=== PATIENT | female | born 1960 | race Caucasian/White ===

== ENCOUNTER 2021-08-31 22:06 | Emergency (ER) | payer OTHER ==
[2021-08-31] MEDS ORDERED: KETOROLAC 15 MG/ML 1 ML VIAL IM STA (22:26)
--- NOTE | 2021-08-31 22:57 | XR ---
EXAMINATION TYPE: XR forearm RT DATE OF EXAM: 08/31/2021 COMPARISON: NONE HISTORY: Elbow pain TECHNIQUE: 2 view FINDINGS: There is a fracture of the capitellum. Radius and ulna appear intact. The carpal bones appe ar intact. Capitellum fragment is rotated anteriorly. IMPRESSION: There is intra-articular fracture of the distal humerus involving the capitellum with rot ation of the fragment.
--- NOTE | 2021-08-31 22:58 | XR ---
EXAMINATION TYPE: XR elbow complete RT DATE OF EXAM: 08/31/2021 COMPARISON: NONE HISTORY: Pain TECHNIQUE: 3 views FINDINGS: There is a fracture of the capitellum of the distal humerus. The fragment measures 10 x 17 mm and is rotated anteriorly and dislocated from the radial head. There is no significant elbow joint effusion. The proximal ulna is intact. Proximal radius is intact. IMPRESSION: Intra-articular fracture of the capitellum with significant rotation of the fragment and anterior displacement and dislocation from the radial head.
[2021-08-31] MEDS ORDERED: ACET/COD 300 MG/30 MG STARTER PACK 6 TAB BTL PO STA (23:21)
--- NOTE | 2021-08-31 23:22 | ED ---
Upper Extremity HPI - General Chief Complaint: Extremity Injury, Upper Stated Complaint: Fall, Arm injury Time Seen by Provider: 08/31/21 22:20 Source: patient Mode of arrival: ambulatory Limitations: no limitations - History of Present Illness Initial Comments: 60-year-old female patient presents the emergency department today for evaluation of right arm pain after a fall. Patient states just prior to arrival she tripped over a dog. States she landed on the right arm. States she is having pain from mid upper arm down to the right elbow. She denies numbness or tingling in the hand. Denies any shoulder pain. Denies hitting her head or losing consciousness. Denies any neck or back pain. Denies any other injuries. She is not taking anything for pain. Denies previous injury to the elbow. - Related Data Previous Rx's Medication Instructions Recorded Ibuprofen [Motrin] 600 mg PO Q8HR PRN #30 tab 08/31/21 Allergies Allergy/AdvReac Type Severity Reaction Status Date / Time hydrocodone Allergy Vomiting Verified 08/31/21 22:10 Review of Systems ROS Statement: Those systems with pertinent positive or pertinent negative responses have been documented in the HPI. ROS Other: All systems not noted in ROS Statement are negative. Past Medical History Past Medical History: No Reported History Past Surgical History: No Surgical Hx Reported Smoking Status: Never smoker Past Alcohol Use History: Occasional Past Drug Use History: Marijuana General Exam Limitations: no limitations General appearance: alert, in no apparent distress, other (This is a well- developed, well-nourished adult female patient in no acute distress.) Head exam: Present: atraumatic, normocephalic, normal inspection Eye exam: Present: normal appearance, PERRL, EOMI. Absent: scleral icterus, conjunctival injection, periorbital swelling ENT exam: Present: normal exam, normal oropharynx, mucous membranes moist Neck exam: Present: normal inspection, full ROM, other (Nontender, no step-off, no deformity to firm midline palpation of the posterior cervical spine. Full range of motion without pain or limitation.). Absent: tenderness, meningismus, lymphadenopathy Respiratory exam: Present: normal lung sounds bilaterally. Absent: respiratory distress, wheezes, rales, rhonchi, stridor Cardiovascular Exam: Present: regular rate, normal rhythm, normal heart sounds. Absent: systolic murmur, diastolic murmur, rubs, gallop, clicks Extremities exam: Present: full ROM, normal capillary refill, other (There is tenderness noted to the right elbow. Mild soft tissue swelling. Skin to the right arm is pink, warm, dry. Cap refill less than 3 seconds. Radial pulses 2+.). Absent: tenderness, pedal edema, joint swelling, calf tenderness Neurological exam: Present: alert, oriented X3, CN II-XII intact Psychiatric exam: Present: normal affect, normal mood Skin exam: Present: warm, dry, intact, normal color. Absent: rash Course Vital Signs 08/31/21 08/31/21 22:07 23:34 Temperature 97.5 F L 97.8 F Pulse Rate 76 74 Respiratory 19 18 Rate Blood Pressure 171/91 130/79 O2 Sat by Pulse 98 98 Oximetry Procedures - Orthopedic Splinting/Casting Injury #1 Side: right Upper Extremity Injury Location: long arm, elbow Upper Extremity Immobilizer: sling/shoulder immobilizer, posterior splint, Raoul wrap, synthetic pre-padded splint Medical Decision Making - Medical Decision Making 60-year-old female patient presents the emergency department today for evaluation of right arm pain after a fall. Physical examination did reveal tenderness over the right elbow with soft tissue swelling. Neurovascular status is intact. X-ray did reveal a fracture of the distal humerus with a fragment of the capitellum which is displaced and rotated. We did place a splint over the arm. She does live in [place], will be traveling back tomorrow. She is instructed to follow-up with orthopedics as soon as she arrives. She was given a copy of the x-ray to take with her. She is given pain medication. Return parameters were discussed in detail. She verbalizes understanding and agrees with this plan. Case discussed with my attending Dr. Hammond. - Radiology Data Radiology results: report reviewed, image reviewed 3 views of the right elbow are obtained. Report is reviewed in its entirety. Impression by Dr. Hassan shows intra-articular fracture of the capitellum with significant rotation of the fragment anterior displacement dislocation from the radial head. 2 views of the right forearm are obtained. Report was reviewed in its entirety. Impression by Dr. Hassan shows intra-articular fracture of the distal humerus involving the capitellum with rotation of the fragment. Disposition Clinical Impression: Closed fracture of right distal humerus Disposition: HOME SELF-CARE Condition: Good Instructions (If sedation given, give patient instructions): Elbow Fracture (ED), Splint Care (ED) Additional Instructions: Apply ice to the area 20 minutes at a time at least 4-5 times per day. Take medication as directed. Follow-up with obgyn specialist for further evaluation as soon as possible. Return to the emergency department for new, worsening, or concerning symptoms. Prescriptions: Ibuprofen [Motrin] 600 mg PO Q8HR PRN #30 tab PRN Reason: Pain Is patient prescribed a controlled substance at d/c from ED?: No Referrals: Nonstaff,Physician [Primary Care Provider] - 1-2 days Time of Disposition: 23:21
[2021-08-31 23:35] VITALS: BP 130/79; PULSE 74; RESP 18; TEMP 97.8
== END 2021-08-31 23:35 | disposition home or self-care (01) ==
LOC: EC 22:06
DX: S42.401A Unspecified fracture of lower end of right humerus, initial encounter for closed fracture (principal); F12.90 Cannabis use, unspecified, uncomplicated; Z88.5 Allergy status to narcotic agent; W01.0XXA Fall on same level from slipping, tripping and stumbling without subsequent striking against object, initial encounter
CPT/HCPCS: 73080; 73090; 29105; 99284; 96372; J1885